=== PATIENT | male | born 1965 | race Two or more races ===

== ENCOUNTER 2018-09-29 08:20 | Emergency (ER) | payer MEDICAID ==
[~2018-09-29] VITALS: Ht 172.7 cm; Wt 109.8 kg
[2018-09-29 08:47] VITALS: BP 117/69
[2018-09-29] MEDS ORDERED: IBUPROFEN 800 MG TAB PO ONE (09:15)
[2018-09-29 09:42] LABS: Urine Bacteria NONE SEEN /hpf (None Seen); Urine Blood 1+ /uL (Negative); Urine Mucus FEW (None Seen); Urine Specific Gravity 1.021 (1.001-1.035); Urine WBC 1 /hpf (0 - 3)
== END 2018-09-29 10:01 | disposition home or self-care (01) ==
LOC: ER 08:20
DX: J02.9 Acute pharyngitis, unspecified (principal); R31.9 Hematuria, unspecified; F17.210 Nicotine dependence, cigarettes, uncomplicated
CPT/HCPCS: 70486; 81001